=== PATIENT | female | born 2000 | race Caucasian/White ===

== ENCOUNTER 2021-04-23 09:52 | Outpatient (CLI) | payer BC, SELFPAY ==
--- NOTE | ~2021-04-23 | XR_ITS ---
XR lumbar spine 2-3V DATE: 04/23/2021 10:33 INDICATION: Sciatica TECHNIQUE: AP, lateral, coned lateral lumbosacral views COMPARISON: None FINDINGS: There is levoscoliosis of the thoracic and upper lumbar spine, mild dextroscoliosis of the lower lumbar spine. The lumbar vertebrae are normally aligned. No fracture or bone destruction. The l umbar pedicles are intact. Lumbar and lumbosacral interspaces are preserved. The sacroiliac joints ar e normal. IMPRESSION: Scoliosis Reviewed, dictated and finalized at location B. IMPRESSION: Scoliosis
--- NOTE | ~2021-04-23 | XR_ITS ---
XR chest 2V DATE: 04/23/2021 10:33 INDICATION: Smoking history. TECHNIQUE: PA and lateral views COMPARISON: None FINDINGS: Normal heart size. No hilar or mediastinal enlargement. No pulmonary infiltrate or consolid ation, pleural effusion or pulmonary vascular congestion or pneumothorax. Mild levoscoliosis of the thoracic spine. IMPRESSION: No active cardiopulmonary disease Reviewed, dictated and finalized at location B.
== END 2021-04-23 09:53 | disposition home or self-care (01) ==
PROVIDERS: PCP Emergency Medicine; Visit Provider Emergency Medicine
DX: M54.30 Sciatica, unspecified side (principal); M41.9 Scoliosis, unspecified
CPT/HCPCS: 71046; 72100

== ENCOUNTER 2021-04-29 08:38 | Emergency (ER) | payer BC, SELFPAY ==
[2021-04-29 08:41] VITALS: BP 133/84; PULSE 97; RESP 20; TEMP 36.5; O2SAT 100
--- NOTE | 2021-04-29 09:54 | ED.GENADULT ---
HPI - General Adult General Chief complaint: Back Pain/Injury Stated complaint: back pain for weeks Time Seen by Provider: 04/29/21 09:17 Source: patient, RN notes reviewed and old records reviewed Mode of arrival: ambulatory Limitations: no limitations History of Present Illness HPI narrative: Patient is a 21-year-old female who presents to emergency department for evaluation of low back pain patient notes that she developed the back pain after lifting an object over a week ago she has been seen by primary care for this she has had lumbar x-rays she has also had blood work and urinalysis. Patient notes some radicular symptoms and tingling down the right foot is scheduled to see primary again next week has been taking naproxen 500 mg twice daily with no improvement. Pain is worse with activity and movement and prolonged standing denies any loss of bladder or bowel function or any loss of feeling or function in the extremity Related Data Home Medications Medication Instructions Recorded Confirmed B Complex Liver-Iron 04/29/21 albuterol sulfate 04/29/21 albuterol sulfate INHALATION 04/29/21 04/29/21 budesonide-formoterol [Symbicort] INHALATION 04/29/21 fexofenadine [Denisse] mg 04/29/21 montelukast mg 04/29/21 naproxen 04/29/21 norgestimate-ethinyl estradiol tablet 04/29/21 [Tri Femynor] Allergies Allergy/AdvReac Type Severity Reaction Status Date / Time morphine Allergy Unknown Verified 04/29/21 08:51 Review of Systems Review of Systems: All systems reviewed & are unremarkable except as noted in HPI and below Exam Narrative: GENERAL: Well-appearing, well-nourished, and in no acute distress. HEAD: Normocephalic, atraumatic. EYES: PERRLA and EOMI. ENT: Nares clear, no rhinorrhea or epistaxis. Mucous membranes moist. NECK: Supple. No adenopathy or masses. CHEST: Clear to auscultation. No respiratory distress. No wheezes rales or rhonchi HEART: Regular rate and rhythm. No murmur heard. Normal peripheral pulses. ABDOMEN: Soft, nontender, nondistended EXTREMITIES: Normal range of motion. No edema. Tenderness over the right SI joint no deformities noted no midline no left-sided tenderness SKIN: Warm, dry, no rash. NEURO: No focal deficits. Alert and oriented x3. Normal speech and gait. Motor and sensory intact and symmetrical in the extremities. Neurovascularly intact PSYCH: Normal mood and affect. Course Course Emergency Course: Patient presented with low back pain will have her medications changed will follow with primary care no other concerning findings ABCs and vital signs intact and stable she is aware of her case findings treatment plan diagnosis and agrees to follow-up primary care given reasons to Vital Signs Vital signs: Vital Signs Temperature 97.7 F 04/29/21 08:41 Pulse Rate 97 04/29/21 08:41 Respiratory Rate 20 04/29/21 08:41 Blood Pressure 133/84 04/29/21 08:41 Pulse Oximetry 100 04/29/21 08:41 Temperature 97.7 F 04/29/21 08:41 Pulse Rate 97 04/29/21 08:41 Respiratory Rate 20 04/29/21 08:41 Blood Pressure 133/84 04/29/21 08:41 Pulse Oximetry 100 04/29/21 08:41 Medical Decision Making MDM Narrative Medical decision making narrative: Patients pain is positional in nature and localized to back without signs of cord compression or cauda equina based on neurological exam, skeletal exam and history. No fever or other significant factors to suggest osteomyelitis or spinal epidural abscess. No symptoms or signs to suggest pain is referred from abdominal or / cardiopulmonary sources. No pulsatile masses noted on exam. Patient ambulates with steady gait and is stable for outpatient management given case findings. Vital Signs Vital Signs: Vital Signs Temperature 97.7 F 04/29/21 08:41 Pulse Rate 97 04/29/21 08:41 Respiratory Rate 20 04/29/21 08:41 Blood Pressure 133/84 04/29/21 08:41 Pulse Oximetry 100 04/29/21 08:41 Temperatur
== END 2021-04-29 10:30 | disposition home or self-care (01) ==
PROVIDERS: Emergency Provider Emergency Medicine; PCP Emergency Medicine
DX: M54.16 Radiculopathy, lumbar region (principal)
CPT/HCPCS: 99283

== ENCOUNTER 2021-06-10 12:13 | Outpatient (CLI) | payer BC, SELFPAY ==
--- NOTE | 2021-06-10 | ECG_ITS ---
Measurements Intervals [place] Rate: 71 P: 66 WV: 151 QRS: 59 QRSD: 77 T: 64 QT: 364 QTc: 397 Interpretive Statements SINUS RHYTHM BASELINE WANDER- I, AVR, AVL NORMAL ECG Electronically Signed On 06-10-2021 13:14:31 HORSE [employer]ACER by Mansoor Rashid D.O.
[2021-06-10 12:45] LABS: Hematocrit 41.5 % (37.0-47.0); Hemoglobin 14.4 g/dL (12.0-15.0); Mean Corpuscular HGB Conc 34.7 g/dl (32-36); Mean Corpuscular Hemoglobin 32.5 pg (26-34); Mean Corpuscular Volume 93.7 fl (80-100); Platelet Count Result 340 k/mm3 (150-375); Red Blood Count 4.43 M/mm3 (4.2-5.4); White Blood Count 9.9 K/mm3 (4.5-10.0)
[2021-06-10 12:58] LABS: Anion Gap 5 mmol/L (8-16); Blood Urea Nitrogen 10 mg/dL (7-17); Calcium 9.9 mg/dL (8.4-10.2); Carbon Dioxide 31 mmol/L (22-30); Chloride 102 mmol/L (98-107); Estimated Glomerular Filt Rate > 60; Glucose 103 mg/dL (65-110); Potassium 3.8 mmol/L (3.4-5.0); Sodium 138 mmol/L (137-145)
== END 2021-06-10 12:14 | disposition home or self-care (01) ==
DX: J45.909 Unspecified asthma, uncomplicated (principal)
CPT/HCPCS: 36415; 80048; 85027; 93005

== ENCOUNTER 2021-10-29 22:05 | Emergency (ER) | payer BC, SELFPAY ==
[2021-10-29 22:08] VITALS: BP 114/53; PULSE 88; RESP 16; TEMP 36.4; O2SAT 100
--- NOTE | 2021-10-29 22:15 | ED.BACK ---
HPI - Back Pain/Injury General Chief Complaint: Back Pain/Injury Stated Complaint: back pain, hx herniated disc Time Seen by Provider: 10/29/21 22:15 Source: patient Mode of arrival: ambulatory Limitations: no limitations History of Present Illness HPI Narrative: Patient is a 21-year-old female with a history of asthma, chronic lower back pain, presenting to the emergency department for evaluation of right-sided lower back pain. States that the pain has been present since April when she was assisting a friend move a heavy couch and she experienced acute onset of pain with heavy lifting. Patient states that at that point she was placed on steroids, anti-inflammatories and that helped to alleviate the pain but over the past few weeks the pain has been worsening. Patient states she is very active at work with heavy bending and lifting and this does seem to exacerbate her pain she reports radiation of the pain down the right buttock into the right thigh and into the right ankle without significant numbness. No foot drop or difficulty with ambulation. Denies fall, back injury or history of cancer. Denies any bowel or bladder incontinence. Denies saddle anesthesia. Pain is exacerbated with bending forward. Patient is established with a new primary care physician that she is supposed to see next week. Patient states that typically Tylenol and ibuprofen does resolve the pain, last dose of Tylenol over 6 hours ago, ibuprofen last dose this morning. Related Data Home Medications Medication Instructions Recorded Confirmed B Complex Liver-Iron 04/29/21 albuterol sulfate 04/29/21 albuterol sulfate INHALATION 04/29/21 04/29/21 budesonide-formoterol [Symbicort] INHALATION 04/29/21 fexofenadine [Denisse] mg 04/29/21 montelukast mg 04/29/21 naproxen 04/29/21 norgestimate-ethinyl estradiol tablet 04/29/21 [Tri Femynor] Allergies Allergy/AdvReac Type Severity Reaction Status Date / Time morphine Allergy Hives Verified 10/29/21 22:16 Review of Systems Review of Systems: CONSTITUTIONAL: Denies fever CARDIOVASCULAR: Denies chest pain RESPIRATORY: Denies cough or dyspnea. GASTROINTESTINAL: Denies abdominal pain SKIN: Denies rash MUSCULOSKELETAL: Reports right lower back pain, denies numbness, weakness NEUROLOGIC: Denies headache, denies numbness or weakness, denies difficulty with ambulation PMFSH Social History Social History (Updated 10/29/21 @ 22:40 by Aniya Finn MD) Smoking status: Never smoker Substance use: never Living arrangements: with friend(s) Occupation/Education: student Gender identity (if verbalized by the patient): Female Exam Narrative: GENERAL: Awake, alert, conversant HEAD: Normocephalic, atraumatic. EYES: PERRLA and EOMI. ENT: Nares clear, no rhinorrhea or epistaxis. Mucous membranes moist. NECK: Supple. CHEST: No respiratory distress, breathing even and non labored HEART: Regular rate, sinus rhythm ABDOMEN:Non distended, non tender EXTREMITIES: Normal range of motion. No edema. Thorax: No midline cervical, thoracic, lumbar pain. There is no lumbar spinal tenderness bilaterally. Positive right SI joint tenderness that exactly reproduces pain on exam SKIN: Warm, dry, no rash. NEURO:No focal deficits. Alert and oriented x3. EOMs intact without nystagmus. No facial droop/asymmetry noted bilaterally. Grimace intact. Intact sensation in face. Hearing intact bilaterally. Shoulder shrug intact. Strength 5/5 bilateral upper extremities. Strength 5/5 bilateral lower extremities. Patient is ambulatory with a narrow-based, steady gait. Intact EHL/FHL with normal strength. Course Course Emergency Course: Patient presenting with acute on chronic exacerbation of lumbar radiculopathy. Given History and Exam the patient appears to be at low risk for Spinal Cord Compression Syndrome, Vertebral Malignancy/Mets, acute Spinal Fracture, Vertebral Osteomyelitis, Epidural Abscess, Infected or Obstructi
[2021-10-29] MEDS: ACETAMINOPHEN 500 MG TABLET 1000 MG PO (22:50)
[2021-10-29] MEDS: KETOROLAC (*BKC) 60 MG/2 ML VIAL 30 MG IM (22:51)
== END 2021-10-29 23:15 | disposition home or self-care (01) ==
PROVIDERS: Emergency Provider Emergency Medicine
DX: M54.16 Radiculopathy, lumbar region (principal); M54.40 Lumbago with sciatica, unspecified side; J45.909 Unspecified asthma, uncomplicated
CPT/HCPCS: 96372; 99283; A9270; J1100; J1885

== ENCOUNTER 2022-11-06 00:53 | Emergency (ER) | payer BC, SELFPAY ==
--- NOTE | ~2022-11-06 | XR_ITS ---
Lumbosacral Spine: AP, oblique, and lateral views Clinical History: Pain Findings: The normal lordotic curve is maintained. The vertebral bodies and posterior elements are i ntact. The intervertebral disc spaces are preserved. The sacroiliac joints are normally outlined. Impression: No significant abnormality. Reviewed, dictated and finalized at [facility]. Impression: No significant abnormality.
[2022-11-06 00:56] VITALS: BP 132/78; PULSE 75; RESP 18; TEMP 37; O2SAT 100
[2022-11-06 02:20] VITALS: PULSE 74; RESP 16; O2SAT 98
--- NOTE | 2022-11-06 02:33 | ED.BACK ---
HPI - Back Pain/Injury General Chief Complaint: Back Pain/Injury Stated Complaint: back pain Time Seen by Provider: 11/06/22 01:15 Source: patient Mode of arrival: ambulatory Limitations: no limitations History of Present Illness HPI Narrative: Patient is a 22-year-old female who presents to the ED with report of right low back pain, radiating down her right lower extremity. Patient reports having intermittent right-sided sciatica for the last 1 year which began after moving heavy furniture at that time. She reports having recurrent pain over the last 3 days. Denies any further injury. She has been taking Tylenol, ibuprofen and metaxalone without much improvement. Pain is worse with standing and walking, can be somewhat alleviated with laying flat. She denies any weakness of legs, numbness, saddle anesthesia, bowel or bladder incontinence, abdominal pain, nausea, vomiting, fevers. Related Data Home Medications Medication Instructions Recorded Confirmed B Complex Liver-Iron 04/29/21 albuterol sulfate 2.5 mg/3 mL 04/29/21 (0.083 %) solution for nebulization albuterol sulfate 90 mcg/actuation inhalation 04/29/21 04/29/21 aerosol inhaler budesonide-formoterol HFA 160 inhalation 04/29/21 mcg-4.5 mcg/actuation aerosol inhaler (Symbicort) fexofenadine 180 mg tablet mg 04/29/21 montelukast 10 mg tablet mg 04/29/21 naproxen 500 mg tablet 04/29/21 norgestimate-ethinyl estradiol tablet 04/29/21 0.18 mg/0.215mg/0.25mg-35 mcg(28)tablet (Tri Femynor) Allergies Allergy/AdvReac Type Severity Reaction Status Date / Time morphine Allergy Hives Verified 11/06/22 01:18 Review of Systems Review of Systems: CONSTITUTIONAL: Denies fever, chills, or sweats. CARDIOVASCULAR: Denies chest pain. RESPIRATORY: Denies dyspnea. GASTROINTESTINAL: Denies abdominal pain, incontinence, nausea, vomiting, or diarrhea. GENITOURINARY: Denies incontinence, dysuria or hematuria. MUSCULOSKELETAL: See HPI. NEUROLOGIC: See HPI. All systems reviewed & are unremarkable except as noted in HPI and below PMFSH Past Medical History Medical History (Updated 11/06/22 @ 03:57 by Elizabeth Ashby PA-C) Asthma Surgical History Surgical History (Updated 11/06/22 @ 03:47 by Elizabeth Ashby PA-C) H/O breast augmentation Social History Social History (Updated 10/29/21 @ 22:40 by Aniya Finn MD) Smoking status: Never smoker Substance use: never Living arrangements: with friend(s) Occupation/Education: student Gender identity (if verbalized by the patient): Female Exam Narrative: GENERAL: Well appearing, well-nourished, non-toxic, in no acute distress. HEAD: Normocephalic, atraumatic. NECK: Supple. No adenopathy, no masses. RESPIRATORY: Airway patent, respirations nonlabored. Clear to auscultation bilaterally, no rales, rhonchi, wheezing. CARDIOVASCULAR: Regular rate and rhythm without murmurs, rubs, or gallops. Pedal pulses 2+ and equal bilaterally. ABDOMINAL: Soft, nontender, nondistended, no hepatosplenomegaly. Normoactive BS. MUSCULOSKELETAL: Moves all extremities. Strength/ROM intact without gross deformities. Positive straight leg raise on right, reproducing pain. No significant midline spinal tenderness throughout lumbar region. More significant tenderness over right paraspinal musculature, over R SI joint. Sensation intact. No palpable deformities. SKIN: Warm, dry, normal color. No rashes. NEURO: A&O X3. Speech clear. Cranial nerves II-XII grossly intact. Steady gait. No ataxic movements. PSYCHIATRIC: Appropriate mood and affect. Normal interaction. Course Vital Signs Vital signs: Vital Signs Temperature 98.6 F 11/06/22 00:56 Pulse Rate 75 11/06/22 00:56 Respiratory Rate 18 11/06/22 00:56 Blood Pressure 132/78 11/06/22 00:56 Pulse Oximetry 100 11/06/22 00:56 Temperature 98.6 F 11/06/22 00:56 Pulse Rate 60 11/06/22 03:12 Respiratory Rate 18
--- NOTE | 2022-11-06 02:50 | ECG_ITS ---
Measurements Intervals [place] Rate: 52 P: MD: 0 QRS: 68 QRSD: 78 T: 75 QT: 403 QTc: 376 Interpretive Statements SINUS BRADYCARDIA ABNORMAL RHYTHM ECG COMPARED TO ECG 06/10/2021 12:57:28 NO SIGNIFICANT CHANGES Electronically Signed On 11-06-2022 11:01:15 CDT by Rodolfo Macias M.D.
[2022-11-06] MEDS: KETOROLAC (*BKC) 60 MG/2 ML VIAL IM (03:01)
[2022-11-06] MEDS: CYCLOBENZAPRINE HCL 5 MG TABLET PO (03:09)
[2022-11-06 03:12] VITALS: BP 102/58; PULSE 60; RESP 18; O2SAT 100
--- NOTE | 2022-11-06 03:18 | PC.NURSE ---
when administering Toradol IM to patient. Patient has a syncopal episode. EDP notified. Valium wasted and not administered due to response to first IM dose of medication.
[2022-11-06 04:09] VITALS: BP 110/62; PULSE 69; RESP 16; O2SAT 100
== END 2022-11-06 04:10 | disposition home or self-care (01) ==
PROVIDERS: Emergency Provider Physician Assistant; PCP Physician Assistant
DX: M54.41 Lumbago with sciatica, right side (principal); R55 Syncope and collapse; J45.909 Unspecified asthma, uncomplicated
CPT/HCPCS: 72110; 93005; 96372; 99283; A9270; J1885

== ENCOUNTER 2023-04-06 06:14 | Emergency (ER) | payer BC, SELFPAY ==
[2023-04-06 06:20] VITALS: BP 126/96; PULSE 72; RESP 18; TEMP 36.3; O2SAT 100
[2023-04-06 06:21] VITALS: BP 126/96
--- NOTE | 2023-04-06 07:14 | ED.BACK ---
HPI - Back Pain/Injury General Chief Complaint: Back Pain/Injury Stated Complaint: back pain Time Seen by Provider: 04/06/23 06:59 History of Present Illness HPI Narrative: 22-year-old female presents to the emergency department for evaluation of right hip pain. Patient reports that she did have a previous injury years ago but then exacerbated this injury yesterday when she stretched her hip while falling down some stairs. Patient reports pain that radiates from the lower back from the right buttock and sometimes as a sharp shooting pain down the right leg. Patient denies any associated numbness or weakness. Patient denies any change in bowel or bladder habits. Related Data Home Medications Medication Instructions Recorded Confirmed B Complex Liver-Iron 04/29/21 albuterol sulfate 2.5 mg/3 mL 04/29/21 (0.083 %) solution for nebulization albuterol sulfate 90 mcg/actuation inhalation 04/29/21 04/29/21 aerosol inhaler budesonide-formoterol HFA 160 inhalation 04/29/21 mcg-4.5 mcg/actuation aerosol inhaler (Symbicort) fexofenadine 180 mg tablet mg 04/29/21 montelukast 10 mg tablet mg 04/29/21 naproxen 500 mg tablet 04/29/21 norgestimate-ethinyl estradiol tablet 04/29/21 0.18 mg/0.215mg/0.25mg-35 mcg(28)tablet (Tri Femynor) Allergies Allergy/AdvReac Type Severity Reaction Status Date / Time morphine Allergy Hives Verified 04/06/23 06:24 Review of Systems Review of Systems: All systems reviewed & are unremarkable except as noted in HPI and below PMFSH Past Medical History Medical History (Updated 04/06/23 @ 07:23 by Donnie Jones MD) Asthma Surgical History Surgical History (Updated 11/06/22 @ 03:47 by Elizabeth Ashby PA-C) H/O breast augmentation Social History Social History (Updated 10/29/21 @ 22:40 by Aniya Finn MD) Smoking status: Never smoker Substance use: never Living arrangements: with friend(s) Occupation/Education: student Gender identity (if verbalized by the patient): Female Exam Narrative: APPEARANCE: Well appearing, no pain, no distress, well-nourished. HEAD: normocephalic, atraumatic. EYES: PERRLA/EOMI, conjunctivae clear. NOSE: Normal no drainage EARS:TMS clear with good light reflex. THROAT: Pharynx clear, no exudate. NECK: Supple. No adenopathy, no masses. RESPIRATORY: Airway patent, respirations nonlabored. Clear to auscultation bilaterally, no rales, rhonchi, wheezing. CARDIOVASCULAR: Regular rate and rhythm without murmurs rubs or gallops. ABDOMINAL: Soft, nontender, nondistended, normal bowel sounds MUSCULOSKELETAL: Right-sided lower back tenderness to palpation, buttock pain. NEURO: Alert. Cranial nerves II through XII intact. Good gait. Good coordination SKIN: Warm, dry. Normal Color PSYCHIATRIC: Normal affect/mood. Course Course Emergency Course: 22-year-old female presented ED for evaluation of right hip pain which is acute on chronic injury. Patient declined the x-ray to evaluate for fracture. Patient is being treated as a potential muscle strain and sciatica. Patient was started on Flexeril and dexamethasone in the ED. Vital Signs Vital signs: Vital Signs Temperature 97.4 F L 04/06/23 06:20 Pulse Rate 72 04/06/23 06:20 Respiratory Rate 18 04/06/23 06:20 Blood Pressure 126/96 H 04/06/23 06:20 Pulse Oximetry 100 04/06/23 06:20 Oxygen Delivery Room Air 04/06/23 06:20 Temperature 97.4 F L 04/06/23 06:20 Pulse Rate 72 04/06/23 06:20 Respiratory Rate 18 04/06/23 06:20 Blood Pressure 126/96 H 04/06/23 06:21 Pulse Oximetry 100 04/06/23 06:20 Oxygen Delivery Room Air 04/06/23 06:20 MDM - Back Pain/Injury Differential Diagnosis Differential diagnosis: Likely lumbar radiculopathy and sciatica Discharge Plan Discharge Clinical Impression: Hip pain, right Patient Disposition: Home, Self-Care Condition: Stable Instructions: Antibiotic Form, Sciatica (ED)
[2023-04-06] MEDS: CYCLOBENZAPRINE HCL 10 MG TABLET PO (07:30)
== END 2023-04-06 08:45 | disposition home or self-care (01) ==
PROVIDERS: Emergency Provider Emergency Medicine; PCP Physician Assistant
DX: M25.551 Pain in right hip (principal); W10.9XXA Fall (on) (from) unspecified stairs and steps, initial encounter; Z79.51 Long term (current) use of inhaled steroids; J45.909 Unspecified asthma, uncomplicated
CPT/HCPCS: 96372; 99283; A9270; J1100

== ENCOUNTER 2023-12-06 18:58 | Emergency (ER) | payer BC, SELFPAY ==
[2023-12-06 19:00] VITALS: BP 173/93; PULSE 130; RESP 18; TEMP 36.4; O2SAT 100
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
[2023-12-06] MEDS: diazePAM (*CRX) 5 MG TABLET PO (20:40)
[2023-12-06] MEDS: KETOROLAC 30 MG/ML VIAL (*BKC) 15 MG IM (20:54)
[2023-12-06 21:20] VITALS: BP 125/61; PULSE 85; RESP 20; TEMP 36.6; O2SAT 97
== END 2023-12-06 21:25 | disposition home or self-care (01) ==
PROVIDERS: Emergency Provider Student in an Organized Health Care Education/Training Program; PCP Physician Assistant
DX: M54.41 Lumbago with sciatica, right side (principal); J45.909 Unspecified asthma, uncomplicated; Z79.899 Other long term (current) drug therapy
CPT/HCPCS: 96372; 99283; A9270; J1885

== ENCOUNTER 2023-12-07 02:30 | Emergency (ER) | payer BC, SELFPAY ==
[2023-12-07 02:40] VITALS: BP 132/96; PULSE 71; RESP 20; TEMP 36.6; O2SAT 98
--- NOTE | 2023-12-07 03:08 | ED.BACK ---
HPI - Back Pain/Injury General Chief Complaint: Back Pain/Injury Stated Complaint: back pain Time Seen by Provider: 12/07/23 02:38 History of Present Illness HPI Narrative: Patient returns to the emergency department after being seen by me just a few hours ago stating that she took the medications and was still having pain and months better pain control. Patient admits to taking gabapentin already today and that does not work. Patient states she does not want any imaging performed when offered. Patient remains denying any red flag symptoms of sciatica or back pain. Related Data Home Medications Medication Instructions Recorded Confirmed B Complex Liver-Iron 04/29/21 albuterol sulfate 2.5 mg/3 mL 04/29/21 (0.083 %) solution for nebulization albuterol sulfate 90 mcg/actuation inhalation 04/29/21 04/29/21 aerosol inhaler budesonide-formoterol HFA 160 inhalation 04/29/21 mcg-4.5 mcg/actuation aerosol inhaler (Symbicort) fexofenadine 180 mg tablet mg 04/29/21 montelukast 10 mg tablet mg 04/29/21 naproxen 500 mg tablet 04/29/21 norgestimate-ethinyl estradiol tablet 04/29/21 0.18 mg/0.215mg/0.25mg-35 mcg(28)tablet (Tri Femynor) Allergies Allergy/AdvReac Type Severity Reaction Status Date / Time morphine Allergy Hives Verified 04/06/23 06:24 Review of Systems Review of Systems: All systems reviewed & are unremarkable except as noted in HPI and below PMFSH Past Medical History Medical History (Updated 12/07/23 @ 07:41 by Dennis Haas DO) Asthma Surgical History Surgical History (Updated 11/06/22 @ 03:47 by Elizabeth Ashby PA-C) H/O breast augmentation Social History Social History (Updated 10/29/21 @ 22:40 by Aniya Finn MD) Smoking status: Never smoker Substance use: never Living arrangements: with friend(s) Occupation/Education: student Gender identity (if verbalized by the patient): Female Comments At time of signature, I have reviewed and agree with nursing past medical, surgical, social and family history unless otherwise noted. Please see the nursing chart for further information. There is no relevant family history pertinent to the presenting complaint. Exam Narrative: CONST: No acute distress. Well nourished. HENMT: Head is normocephalic and atraumatic.? EYES: No conjunctival icterus. RESP: Able to speak in full sentences. Normal respiratory effort. CTAB. CARDIO: Regular rate. Regular rhythm. 2+ DP and radial pulses bilaterally. GI: Nondistended. No tenderness to palpation. : No CVA tenderness to palpation. SKIN:? Well-healing abrasion to the right anterolateral knee. NEURO: Oriented x3. Moves all extremities.? No focal neurological deficits.? Motor strength is 5/5 bilateral lower extremities. EXTREM/MSK/BACK: No pedal edema.? No midline vertebral tenderness to palpation or step-offs.? Positive straight leg raise on the right. PSYCH: Normal affect. Course Vital Signs Vital signs: Vital Signs Temperature 97.9 F 12/07/23 02:40 Pulse Rate 71 12/07/23 02:40 Respiratory Rate 20 12/07/23 02:40 Blood Pressure 132/96 H 12/07/23 02:40 Pulse Oximetry 98 12/07/23 02:40 Oxygen Delivery Room Air 12/07/23 02:40 Temperature 97.9 F 12/07/23 02:40 Pulse Rate 71 12/07/23 02:40 Respiratory Rate 20 12/07/23 02:40 Blood Pressure 132/96 H 12/07/23 02:40 Pulse Oximetry 98 12/07/23 02:40 Oxygen Delivery Room Air 12/07/23 02:40 MDM - Back Pain/Injury MDM Narrative Medical decision making narrative: Patient ordered [place] and given a prescription. Patient advised on the risks of this medication and all questions answered to completion. Patient demonstrates understanding agreeable plan of care and will follow-up as directed and return as needed. Differential Diagnosis Differential diagnosis: Likely sciatica Discharge Plan Discharge Clinical Impression: Sciatica Qualifiers: Laterality: right Quali
[2023-12-07] MEDS: HYDROcodone/acetaminophen (*CRX) 7.5-325 MG TABLET 1 TAB PO (03:20)
== END 2023-12-07 03:24 | disposition home or self-care (01) ==
PROVIDERS: Emergency Provider Student in an Organized Health Care Education/Training Program; PCP Physician Assistant
DX: M54.31 Sciatica, right side (principal); J45.909 Unspecified asthma, uncomplicated; Z79.899 Other long term (current) drug therapy
CPT/HCPCS: 99283; A9270

== ENCOUNTER 2024-03-29 18:44 | Emergency (ER) | payer BC, SELFPAY ==
--- NOTE | ~2024-03-29 | CT_ITS ---
CT lumbar spine wo con Ordering provider: Elizabeth Ashby PA-C History: 23 years Female with . lbp . Comparison: None. Technique: CT lumbar spine without contrast. Automated exposure control and iterative reconstruction technique were employed. The dose-length product was 285.32 mGy-cm. FINDINGS: VERTEBRAE: Normal height and alignment. No subluxation or visible acute fracture. Sclerotic lesion in the left pedicle of L5 differential include. Osteoma versus osteoblastoma. Further evaluation advise d. Dextroscoliosis. DISC SPACES: Well maintained. T12-L1: No stenosis. L1-L2: No stenosis. L2-L3: No stenosis. Mild diffuse disc bulge. L3-L4: No stenosis. Mild diffuse disc bulge. L4-L5: Mild spinal canal stenosis secondary to broad based disc bulge with central protrusion. Mild narrowing of the foramina with no root compression.. L5-S1: No stenosis. Diffuse disc bulge. PARASPINOUS SOFT TISSUES: Normal aorta. Loss of lordosis which may indicate muscle spasm. IMPRESSION: Diffuse disc bulge at the level of L4-L5 with central protrusion and mild spinal canal stenosis. Inte rvertebral foraminal narrowing is seen with no definite root compression. Sclerotic lesion in the left pedicle of L5. Differential include osteoid osteoma and osteoblastoma. F urther evaluation advised. No acute osseous abnormality. Reviewed, dictated and finalized at location A. IMPRESSION: Diffuse disc bulge at the level of L4-L5 with central protrusion and mild spina l canal stenosis. Intervertebral foraminal narrowing is seen with no definite r oot compression. Sclerotic lesion in the left pedicle of L5. Differential include osteoid osteom a and osteoblastoma. Further evaluation advised. No acute osseous abnormality.
[2024-03-29 18:45] VITALS: BP 123/78; PULSE 63; RESP 16; TEMP 36.6; O2SAT 99
[2024-03-29] MEDS: methocarbamoL 500 MG TABLET 1000 MG PO (19:10)
[2024-03-29] MEDS: ACETAMINOPHEN 325 MG TABLET 650 MG PO (19:11)
[2024-03-29] MEDS: methylPREDNISolone SOD SUCC 125 MG VIAL IM (19:13)
[2024-03-29] MEDS: KETOROLAC 30 MG/ML VIAL (*BKC) IM (19:13)
--- NOTE | 2024-03-29 19:26 | ED.BACK ---
HPI - Back Pain/Injury General Chief Complaint: Back Pain/Injury <SIOHBAN Pierce Last Filed: 03/30/24 01:24> Stated Complaint: back pain <SIOBHAN Pierce Last Filed: 03/30/24 01:24> Time Seen by Provider: 03/29/24 18:52 <SIOBHAN Pierce Last Filed: 03/30/24 01:24> Source: patient <SIOBHAN Pierce Last Filed: 03/30/24 01:24> Mode of arrival: ambulatory <SIOBHAN Pierce Last Filed: 03/30/24 01:24> Limitations: no limitations <SIOBHAN Pierce Last Filed: 03/30/24 01:24> History of Present Illness HPI Narrative: Patient is a 23-year-old female who presents the ED with report of low back pain. Patient reports she has had issues with pain throughout her lower back over the last couple years. She states last night her partner sat on her back and she heard several pops. She went to a chiropractor today and was told 1 of her vertebrae had slipped. She has been taking Bureau, ibuprofen, Flexeril at home without improvement. Reports pain somewhat radiates into right lower extremity. Denies weakness or numbness of lower extremities. Denies saddle anesthesia, bowel or bladder incontinence. Denies abdominal pain, fevers. <SIOBHAN Pierce Last Filed: 03/30/24 01:24> Related Data Home Medications: Home Medications Medication Instructions Recorded Confirmed B Complex Liver-Iron 04/29/21 albuterol sulfate 2.5 mg/3 mL 04/29/21 (0.083 %) solution for nebulization albuterol sulfate 90 mcg/actuation inhalation 04/29/21 04/29/21 aerosol inhaler budesonide-formoterol HFA 160 inhalation 04/29/21 mcg-4.5 mcg/actuation aerosol inhaler (Symbicort) fexofenadine 180 mg tablet mg 04/29/21 montelukast 10 mg tablet mg 10/19/21 naproxen 500 mg tablet 04/29/21 norgestimate-ethinyl estradiol tablet 04/29/21 0.18 mg/0.215mg/0.25mg-35 mcg(28)tablet (Tri Femynor) <Elizabeth Ashby PA-C - Last Filed: 03/30/24 01:24> Allergies/Adverse Reactions: Allergies Allergy/AdvReac Type Severity Reaction Status Date / Time morphine Allergy Hives Verified 04/06/23 06:24 <Elizabeth Ashby PA-C - Last Filed: 03/30/24 01:24> Review of Systems Review of Systems: All systems reviewed & are unremarkable except as noted in HPI. <Elizabeth Ashby PA-C - Last Filed: 03/30/24 01:24> All systems reviewed & are unremarkable except as noted in HPI and below <Elizabeth Ashby PA-C - Last Filed: 03/30/24 01:24> PMFSH Past Medical History Medical History: Medical History Asthma <Elizabeth Ashby PA-C - Last Filed: 03/30/24 01:24> Surgical History Surgical History: Surgical History H/O breast augmentation <Elizabeth Ashby PA-C - Last Filed: 03/30/24 01:24> Social History Social History: Social History Smoking status: Never smoker Substance use: never Living arrangements: with friend(s) Occupation/Education: student Gender identity (if verbalized by the patient): Female <Elizabeth Ashby PA-C - Last Filed: 03/30/24 01:24> Exam Narrative: GENERAL: Well appearing, well-nourished, non-toxic, in no acute distress. HEAD: Normocephalic, atraumatic. RESPIRATORY: Airway patent, respirations nonlabored. Clear to auscultation bilaterally, no rales, rhonchi, wheezing. CARDIOVASCULAR: Regular rate and rhythm without murmurs, rubs, or gallops MUSCULOSKELETAL: Moves all extremities. No gross deformities. Diffuse tenderness throughout right lumbosacral region into right SI region. No appreciable midline spinal tenderness. Sensation intact. SKIN: Warm, dry, normal color. NEURO: A&O X3. Speech clear. PSYCHIATRIC: Appropriate mood and affect. Normal interacti
[2024-03-29 19:38] LABS: BEDSIDEPREGUCG Negative (Negative)
--- NOTE | 2024-03-29 20:59 | PC.NURSE ---
Pt refused urine at this time. BUBBA Johnson aware of pts refusal.
[2024-03-29 21:39] VITALS: BP 121/87; PULSE 77; RESP 18; TEMP 36.9; O2SAT 100
== END 2024-03-29 21:42 | disposition home or self-care (01) ==
PROVIDERS: Emergency Provider Physician Assistant; PCP Physician Assistant
DX: M51.36 Other intervertebral disc degeneration, lumbar region (principal); J45.909 Unspecified asthma, uncomplicated
CPT/HCPCS: 72131; 81025; 96372; 99284; A9270; J1885; J2919

== ENCOUNTER 2024-05-07 12:31 | Outpatient (CLI) | payer BC, SELFPAY ==
--- NOTE | ~2024-05-07 | MR_ITS ---
EXAMINATION: MR lumbar spine wo con DATE: 05/07/2024 13:06 INDICATION: Bulging of lumbar intervertebral disc. Chronic low back pain. TECHNIQUE: Magnetic resonance imaging (MRI) of the lumbar spine was performed without intravenous con trast. Sequences included sagittal T2-weighted FSE, sagittal T2-weighted FS FSE, sagittal T1-weighted FSE, and axial T2-weighted FSE. COMPARISON: CT lumbar spine 03/29/2024 FINDINGS: There is 15 degrees dextroscoliosis of lumbar spine. There is mild kyphosis of thoracolumba r spine. Vertebral body heights are normal. There is a benign bone island in left L5 pedicle. There i s mildly decreased disc height at L4-L5 and moderately decreased disc height at L5-S1. The distal spi nal cord signal intensity is normal. The conus medullaris is at L1. The following disc levels are spe cifically discussed: L1-L2: The disc does not extend beyond the endplate margin. There is no facet joint osteoarthritis. T here is no neural foraminal stenosis. There is no central canal stenosis. L2-L3: The disc does not extend beyond the endplate margin. There is no facet joint osteoarthritis. T here is no neural foraminal stenosis. There is no central canal stenosis. L3-L4: The disc does not extend beyond the endplate margin. There is mild left facet joint osteoarthr itis. There is no neural foraminal stenosis. There is no central canal stenosis. L4-L5: The disc is bulging with superimposed central extrusion. There is mild bilateral facet joint o steoarthritis. There is mild bilateral neural foraminal stenosis. There is mild central canal stenosi s. L5-S1: The disc is bulging with superimposed large right central and subarticular zone extrusion with mass effect on the right-sided sacral nerve roots. There is mild bilateral facet joint osteoarthriti s. There is mild bilateral neural foraminal stenosis. There is severe central canal stenosis, worse o n the right. IMPRESSION: 1. Severe lower lumbar spondylosis. 2. Lumbar dextroscoliosis. Reviewed, dictated and finalized at location A.
== END 2024-05-07 12:32 | disposition home or self-care (01) ==
LOC: ANHIMG 12:40
PROVIDERS: PCP Physician Assistant; Visit Provider Physician Assistant
DX: M89.9 Disorder of bone, unspecified (principal); M54.41 Lumbago with sciatica, right side; G89.29 Other chronic pain; M43.06 Spondylolysis, lumbar region; M41.86 Other forms of scoliosis, lumbar region
CPT/HCPCS: 72148